=== PATIENT | female | born 1955 | race Caucasian/White ===

== ENCOUNTER 2022-07-11 08:01 | Outpatient (CLI) | payer MEDICARE, OTHER | END 2022-07-11 23:59 | disposition home or self-care (01) | LOC: LAB 08:01 | PROVIDERS: ATTEND Surgery | DX: Z01.812 Encounter for preprocedural laboratory examination (principal); Z20.822 Contact with and (suspected) exposure to COVID-19 | CPT/HCPCS: U0003; C9803 ==

== ENCOUNTER 2022-07-17 08:23 | Day surgery (SDC) | payer MEDICARE, OTHER | END 2022-07-17 11:50 | disposition home or self-care (01) | LOC: DS 08:23 | PROVIDERS: ATTEND Surgery | DX: R10.30 Lower abdominal pain, unspecified (principal); R19.4 Change in bowel habit; K64.8 Other hemorrhoids; K57.30 Diverticulosis of large intestine without perforation or abscess without bleeding; D12.8 Benign neoplasm of rectum; Z98.890 Other specified postprocedural states; Z79.899 Other long term (current) drug therapy | CPT/HCPCS: 45385; 71045; 88305; 93005; J0461; J2704; J3490 ==